=== PATIENT | male | born 1950 | race Caucasian/White ===

== ENCOUNTER 2020-07-08 07:55 | Day surgery (SDC) | payer MEDICARE, OTHER, SELFPAY ==
[2020-03-21 09:49] VITALS: BMI 21.9
[2020-07-08] VITALS (7 sets, daily range): BP systolic 122–150; BP diastolic 62–88; PULSE 60–70; RESP 16–18; TEMP 36.6–37.2; O2SAT 96–100; BMI 21.4
[2020-07-08] MEDS: Lactated Ringers 1,000 ML 100 ML IV (08:37)
--- NOTE | 2020-07-08 09:50 | PCM.HP.STD ---
Problem List (1) Prostate cancer Status: Acute History of Present Illness Date of Admission: 07/08/20 Chief Complaint: Prostate cancer The patient is a 70 year old male with low-grade prostate cancer who is elected to undergo radical treatment with radiation therapy high dose. Plan to place gold markers in the prostate and a spacer gel to lower the rectal toxicity. Past Medical History Medical History: Medical History (Last Updated 03/21/20 @ 09:48 by Fabienne Robledo RN) Prostate cancer C61 HTN (hypertension) I10 Allergies Fjunldp-Vzv-Mro Reductase Inhibitor Adverse Reaction (Verified 07/08/20 08:16) PT UNSURE OF REACTION joint pain Home Medications: Ambulatory Orders Medication Instructions Recorded Lisinopril [Zestril] 10 mg PO DAILY 03/21/20 Glucosamine/Methylsulfonylmeth 1 ea PO DAILY 06/27/20 [Glucosamine-MSM Caplet] Multivit-Min/Folic/Vit K/Lycop 1 ea PO DAILY 06/27/20 [Men's 50 Plus Multivitamin Tab] Surgical History: Surgical History (Last Updated 03/21/20 @ 09:48 by Fabienne Robledo RN) H/O carotid endarterectomy Z98.890 march 2017 Surgical History: no surgical history Smoking Status: Never smoker Review of Systems Constitutional: Denies: Chills, Fever, Weight Change HEENT: Denies: Head Aches, Sinus Congestion, Sinus Drainage Cardiovascular: Denies: Chest Pain, Palpitations Respiratory: Denies: Cough, Shortness of breath at rest, Sputum production Gastrointestinal: Denies: Abdominal Pain, Nausea, Vomiting Genitourinary: Denies: Dysuria Musculoskeletal: Denies: Joint Pain, Joint Tenderness Skin: Denies: Rash, Wounds Neurological: Denies: Numbness, Tingling, Focal weakness Psychiatric: Denies: Anxiety, Depression, Homicidal Ideations, Suicidal Ideations Hematologic/ Lymphatic: Denies: Easy Bruising, Easy Bleeding VTE Information - Inpt Only VTE Present on Admission: No - Physical Exam Vitals/I&O's: Vital Signs Temp Pulse Resp BP Pulse Ox 97.8 F 70 16 149/88 H 100 07/08/20 08:16 07/08/20 08:16 07/08/20 08:16 07/08/20 08:16 07/08/20 08:16 Oxygen Delivery Method Room Air Weight: 63.8 kg Body Mass Index (BMI) 21.4 General: Alert, Oriented x3, Cooperative HEENT: Atraumatic, PERRLA, EOMI, Normocephalic Neck: Supple, No JVD, Negative Carotid Bruits Lungs: Clear to auscultation, Normal air movement Cardiovascular: Regular rate, No murmurs Abdomen: Bowel Sounds Present, Soft, Non Tender Extremities: No edema, Capillary Refill Less than 3 Seconds Skin: No rashes, No breakdown Musculoskeletal: No Tenderness to Palpation of Joints or Extremities Neurological: Cranial nerves II-XII grossly intact Psych/Mental Status: Normal Affect, Appropriate Current Medications Cefazolin Sodium 2 gm/ Sodium (Chloride) 110 mls @ 150 mls/hr IV PREOP ONE Stop: 07/08/20 10:43 Lactated Ringer's () 1,000 mls @ 100 mls/hr IV .Q10H ROWDY Last Admin: 07/08/20 08:37 Dose: 100 mls/hr Documented by: Assessment/Plan All Active Problems (Last Updated 03/21/20 @ 09:48 by Fabienne Robledo RN) Prostate cancer (Acute) 70-year-old male plan to proceed with placement of gold markers and spacer gel matrix.
[2020-07-08] MEDS: Cefazolin 2 GM in 0.9% Normal Saline 100 ML IV (09:52)
--- NOTE | 2020-07-08 09:52 | PCM.DC.URO ---
Discharge Diet: No Restrictions Discharge Activity: Return to Normal Activity, May Not Drive - for 2 days. Additional Activity Instructions:: Please be aware that pain medications may cause nausea. You should typically eat light foods as you take your pain medication. Pain medication may cause constipation, if this is a problem for you, please discuss with your doctor. Allergies/Adverse Reactions: Allergies Zbqsskb-Xzl-Kyz Reductase Inhibitor Adverse Reaction (Verified 07/08/20 08:16) PT UNSURE OF REACTION joint pain Medications to take at Discharge Lisinopril [Zestril] 10 mg PO DAILY 03/21/20 Glucosamine/Methylsulfonylmeth [Glucosamine-MSM Caplet] 1 ea PO DAILY 06/27/20 Multivit-Min/Folic/Vit K/Lycop [Men's 50 Plus Multivitamin Tab] 1 ea PO DAILY 06/27/20 Orders to be completed after discharge: Pelvis (Routine) [MRI] Facility: [facility], [place], Location: [facility] Primary Care Physician: Sukhwinder Burnett MD [Primary Care Provider] - Test Results: Test results from this visit will be discussed in further detail at your follow-up appointment, if applicable. Please Follow Up With: Vishal Cash MD When: in 2 weeks, please call to make an appointment.
[2020-07-08] MEDS: 0.9% Normal Saline (Pres. free 10 ML Vial (10:04)
--- NOTE | 2020-07-08 10:09 | PCM.OPRPT ---
Problem List (1) Prostate cancer Status: Acute Report of Operation Date of Procedure: 07/08/20 Pre-Operative Diagnosis: Prostate cancer Post-Operative Diagnosis: Same Surgery/Procedure Performed:: Transrectal ultrasound-guided placement of gold fiducial markers. Transrectal ultrasound-guided placement of spacer organ at risk gel matrix. Description of Surgical Findings:: 70-year-old male was taken back to the operating room after smooth induction of anesthesia he was placed supine on the table then placed in dorsolithotomy position. The penis and testicles were prepped and draped in the usual fashion we held the testicles up with a wet towel. The perineum was shaved prepped and draped in usual sterile fashion. Placed an ultrasound probe into the rectum performed ultrasonography of the prostate identified the base mid and apex of the prostate and the seminal vesicles. I then used gold markers and placed first cover marker on the right base second cover marker in the left base and the third core marker in the left apex. Then the gel matrix was prepared in the back table in usual fashion and used the bevel needle down to advance the needle into the proper location between the rectum and the fascia and an obvious space was identified we injected the space with normal saline and separation create a nice separation between the prostate and the rectum I then injected the gel over the course of 12 seconds into the space and created a separation between the rectum and the prostate the gel matrix was deployed into the space the needle was removed the patient was then cleaned taken out of position and taken the PACU in good position condition. He will then proceed with radiation therapy. Type of Anesthesia:: General - Admit VTE Documentation VTE Present on Admission: No VTE Mechan Device Prophylaxis: SCD's
== END 2020-07-08 11:12 | disposition home or self-care (01) ==
LOC: SDC 07:57 → AC 07:59
PROVIDERS: Anesthesiology; PCP Internal Medicine; Referring Provider Urology; Visit Provider Urology
PROC: (CPT 55874; principal; 2020-07-08 09:45)
DX: C61 Malignant neoplasm of prostate (principal); I10 Essential (primary) hypertension; Z20.828 Contact with and (suspected) exposure to other viral communicable diseases
CPT/HCPCS: 00902; 55876; 76942; 87635; C9803; J7120; J2405; J3490; U0003

== ENCOUNTER → 2020-07-14 12:28 | Outpatient (CLI) | payer MEDICARE, OTHER, SELFPAY ==
[2020-03-21 09:49] VITALS: BMI 21.9
[2020-07-08 08:16] VITALS: BMI 21.4
--- NOTE | 2020-07-14 12:29 | MRI_ITS ---
HISTORY: THERAPY PLANNING FOR PROSTATE CA, NO COMPLAINTS ADDITIONAL HISTORY: None provided. COMPARISON: CT 07/14/2020 TECHNIQUE: Multiplanar, multisequence MRI of the pelvis without contrast. Exam performed with standard pelvis protocol rather than a dedicated prostate protocol. FINDINGS: BLADDER: Unremarkable. REPRODUCTIVE ORGANS: A 7 x 10 mm hypointense focus is seen in the posterior prostate on the right at the 7 to 8 o'clock position. No obvious extension beyond the capsule is seen, although exam performed with 5 mm slice thickness which significantly limits evaluation in this regard. 1.8 x 3.3 cm fluid signal intensity lesion seen posterior to the seminal vesicles predominantly to the left of midline. IMAGED GI TRACT: Unremarkable as imaged. ABDOMINAL WALL: Unremarkable. LYMPH NODES: No pathologic appearing adenopathy. FREE FLUID: None. SKELETON AND SOFT TISSUES: No acute skeletal findings. No suspicious bone lesion. MRI/Pelvis (Routine) IMPRESSION: 1. Small focus of decreased T2 signal intensity in the right posterior prostate, possibly related to the provided history of prostate cancer, as above. 2. Fluid signal intensity lesion along the posterior aspect of the prostate and seminal vesicles is most likely from the vesicle cyst. at [id number] Reported and signed by: Marisol Del Rosario MD Electronically Signed: Marisol DelR osario MD at 8:08 EDT Tel , Service support ,
--- NOTE | 2020-07-14 13:10 | RAD_ITS ---
STUDY: X-RAY - ORBITS REASON FOR EXAM: Male, 70 years old. Hx metal, pre mri TECHNIQUE: 2 view(s) of the orbits were obtained. COMPARISON: None. FINDINGS: Normal bilateral orbits without a metallic orbital foreign body. Normal visualized facial bones. Normal paranasal sinuses. The soft tissue structures are unremarkable. RAD/Orbits for Foreign Body IMPRESSION: No demonstrated metallic orbital foreign body. The patient is cleared for an MRI examination. Electronically Signed: Jake Rojas, at 13:34 EDT , Service support ,
== END ==
PROVIDERS: PCP Internal Medicine; Referring Provider Student in an Organized Health Care Education/Training Program; Visit Provider Student in an Organized Health Care Education/Training Program
DX: C61 Malignant neoplasm of prostate (principal)
CPT/HCPCS: 70030; 72195; 77014; 77290